=== PATIENT | male | born 1970 | race Hispanic/Latino ===

== ENCOUNTER 2018-07-19 09:19 | Outpatient (CLI) | payer OTHER ==
--- NOTE | 2018-07-19 09:59 | RAD ---
FOUR VIEWS RIGHT ELBOW: History: Wrestling, elbow pain and swelling. FINDINGS: Four views of the right elbow shows no evidence of acute fracture or dislocation. Moderate soft tissu e swelling is seen along the ulnar aspect of the elbow. No degenerative changes are seen. IMPRESSION: Soft tissue swelling without acute osseous abnormality. POS: [facility]
--- NOTE | 2018-07-19 10:01 | RAD ---
TWO VIEWS RIGHT FOREARM: Comparison: None. History: Wresting, pain along the elbow. FINDINGS: Two views of the right forearm shows soft tissue swelling along the medial aspect of the proximal for earm. No fracture or dislocation are seen. IMPRESSION: No evidence of acute osseous abnormality. POS: [facility]
== END 2018-07-19 09:20 | disposition home or self-care (01) ==
LOC: BURRAD 09:19
PROVIDERS: ATTEND Physician Assistant
DX: M25.421 Effusion, right elbow (principal); R20.2 Paresthesia of skin; M79.89 Other specified soft tissue disorders; Y93.72 Activity, wrestling